=== PATIENT | male | born 1940 | race Caucasian/White ===

== ENCOUNTER 2016-10-14 05:28 | Day surgery (SDC) | payer BC, OTHER ==
[2016-10-10 15:03] VITALS: BMI 28.1
[2016-10-14] MEDS ORDERED: DESFLURANE GAS 240 ML BOTTLE IH ONE (09:25)
[2016-10-14] MEDS ORDERED: PROPOFOL 20 ML ONE ×2 (09:28)
[2016-10-14] MEDS ORDERED: SUCCINYLCHOLINE CHLORIDE 200 MG/10 ML VIAL ONE (09:43)
[2016-10-14] MEDS ORDERED: LEVOFLOXACIN 500 MG PREMIX BAG IVPB ONE (09:51)
[2016-10-14] MEDS ORDERED: MIDAZOLAM HCL 2 MG/2 ML SINGLE DOSE VIAL ONE (09:54)
[2016-10-14] MEDS ORDERED: KETOROLAC TROMETHAMINE 30 MG/1 ML VIAL ONE (09:56)
--- NOTE | 2016-10-14 10:33 | OP ---
Operative Note - Note: Operative Date: 10/14/16 Pre-Operative Diagnosis: recurrent bladder tumor Operation: transurethral resection and vaporization of bladder tumor Findings: sessile bladder tumor involve posterior wall and dome of bladder (area of [id number]) Post-Operative Diagnosis: Same as Pre-op Surgeon: Madhu Villaseñor Anesthesia: General Specimens Removed: bladder tumor Estimated Blood Loss (mls): 10 Drains & Tubes with Location: [address] [facility] [place] Operative Report Dictated: Yes
[2016-10-14] MEDS ORDERED: oxyCODONE HCL 5 MG TABLET PO PRN (10:42)
[2016-10-14] MEDS ORDERED: PROMETHAZINE HCL 25 MG/1 ML VIAL IVPUSH PRN (10:42)
[2016-10-14] MEDS ORDERED: ONDANSETRON 4 MG/2 ML VIAL IVPUSH PRN (10:42)
--- NOTE | 2016-10-14 11:40 | OP ---
DATE OF OPERATION: 10/14/2016 PREOPERATIVE DIAGNOSIS: Recurrent bladder tumor. POSTOPERATIVE DIAGNOSIS: Recurrent bladder tumor. PROCEDURE: Transurethral resection and transurethral vaporization of bladder tumor. ATTENDING: Feli Michelle MD ANESTHESIA: General. DESCRIPTION OF PROCEDURE: The patient was brought into the operating room and placed in a supine position on the operating room table. General anesthesia and preoperative antibiotics were administered for surgical prophylaxis. The patient was then placed in a dorsal lithotomy position. The patient has a history of transitional cell carcinoma of the bladder. On interval cystoscopy, the patient was noted to have a sessile tumor involving the posterior wall and dome of the bladder with an area involving greater than 10 cm x 10 cm. The patient is aware of the risks of perforation. The patient understands these risks and accepts these risks. A resectoscope was placed, and resection of tumor involving the posterior wall of the bladder is performed. The area of tumor is greater than 10 cm x 10 cm. A retail sales representative resection is performed in order to assess whether or not muscle infiltration of the presumed cancer has occurred. The patient had all bladder fragments evacuated with the [employer] evacuator. Excellent hemostasis was obtained at this time. Once this was accomplished, vaporization of residual tumor and the complete posterior wall and posterior dome of the bladder was performed. Vaporization was done to the level of the muscle tissue. Excellent hemostasis was obtained. No evidence of perforation was noted. The patient tolerated the procedure very well. He was left with a 26-Israeli catheter straight drainage with clear drainage. The disposition of the patient was to the recovery room. FELI MICHELLE M.D. [id number]
[2016-10-14 12:08] VITALS: TEMP 97.9
[2016-10-14 13:11] VITALS: BP 115/58; PULSE 66
--- NOTE | 2016-10-15 11:32 | PATH ---
Surgical Pathology Report Patient Name: MIKEY NICOLAS [facility]. Rec. #: [id number] /Age/Gender: 1940 (Age: 76) / M Account: [id number] Location: [facility] Taken: 10/14/2016 Received: 10/14/2016 Reported: 10/15/2016 Physicians: Madhu Villaseñor Specimen(s) Received BLADDER TUMOR Clinical History Recurrent bladder tumor Final Diagnosis BLADDER, TUR: FLAT UROTHELIAL CARCINOMA IN SITU. NO INVASION IDENTIFIED. MUSCULARIS PROPRIA (DETRUSOR MUSCLE) IS PRESENT AND IS FREE OF CARCINOMA. Comment: This case was discussed with Dr. Villaseñor on October 15, 2016. Electronically Signed Baldemar Black M.D. Gross Description Received in formalin labeled "bladder tumor," is a 1.5 x 1.1 x 0.3 cm aggregate of jackson-pink soft tissue fragments. The formalin is filtered and the specimen is entirely submitted in one cassette. /10/14/2016 saudi10/14/2016
== END 2016-10-14 13:11 | disposition home or self-care (01) ==
LOC: JASU-SURG 05:28
PROVIDERS: ATTEND Urology
PROC: 0T5B8ZZ Destruction of Bladder, Via Natural or Artificial Opening Endoscopic (ICD-10-PCS; principal; 2016-10-14 09:00)
DX: D09.0 Carcinoma in situ of bladder (principal)
CPT/HCPCS: 88307-TC; 94760

== ENCOUNTER 2017-01-16 17:37 | Inpatient (IN) | payer BC, OTHER ==
[2017-01-16 17:49] VITALS: BMI 27.0
[2017-01-16] MEDS ORDERED: SODIUM CHLORIDE 500 ML IV STA ×2 (18:16→18:26)
--- NOTE | 2017-01-16 18:24 | PDOC ---
History of Present Illness - General Chief Complaint: Weakness Stated Complaint: WEAKNESS Time Seen by Provider: 01/16/17 18:01 History Source: Patient, Family - History of Present Illness Timing/Duration: other (4 days) Associated Symptoms: reports: weakness. denies: chest pain, cough, fever/chills , headaches, nausea/vomiting, shortness of breath, syncope Past History - Past Medical History Allergies/Adverse Reactions: Allergies Allergy/AdvReac Type Severity Reaction Status Date / Time No Known Drug Allergies Allergy Verified 01/16/17 17:49 Home Medications: Ambulatory Orders Aspirin [ASA -] 81 mg PO DAILY 01/20/12 Tamsulosin HCl [Flomax -] 0.4 mg PO HS 01/20/12 Valsartan [Diovan] 40 mg PO DAILY #0 tablet 01/23/12 Amlodipine Besylate [Norvasc -] 2.5 mg PO DAILY 10/14/16 Bupropion HCl [Bupropion Xl] 300 mg PO DAILY 10/14/16 Metformin HCl 500 mg PO BID 10/14/16 Simvastatin 20 mg PO HS 10/14/16 Anemia: Yes Asthma: No Cancer: Yes (BLADDER) Cardiac Disorders: Yes (PACEMAKER) CVA: No COPD: No CHF: No Dementia: No Diabetes: Yes GI Disorders: No Disorders: No HTN: Yes Hypercholesterolemia: Yes Liver Disease: No Seizures: No Thyroid Disease: No - Surgical History Abdominal Surgery: Yes (BLADDER) Appendectomy: No Cardiac Surgery: Yes (PACEMAKER) Cholecystectomy: No Lung Surgery: No Neurologic Surgery: No Orthopedic Surgery: Yes - Psycho/Social/Smoking Cessation Hx Suicidal Ideation: No Smoking Status: No Smoking History: Never smoked Have you smoked in the past 12 months: No Number of Cigarettes Smoked Daily: 0 Information on smoking cessation initiated: No Hx Alcohol Use: No Drug/Substance Use Hx: No Substance Use Type: None Hx Substance Use Treatment: No Review of Systems - Review of Systems Constitutional: Yes: Malaise, Weakness. No: Fever Respiratory: No: Cough, Shortness of Breath Cardiac (ROS): Yes: Lightheadedness. No: Chest Pain, Palpitations, Syncope ABD/GI: No: Constipated, Diarrhea, Nausea, Vomiting : No: Burning, Flank Pain, Hematuria Neurological: Yes: Dizziness. No: Headache *Physical Exam - Vital Signs Last Vital Signs Temp Pulse Resp BP Pulse Ox 97.5 F L 71 18 85/56 99 01/16/17 17:46 01/16/17 17:46 01/16/17 17:46 01/16/17 17:46 01/16/17 17:46 - Physical Exam General Appearance: Yes: Appropriately Dressed. No: Apparent Distress HEENT: positive: Normal Voice Neck: positive: Supple Respiratory/Chest: positive: Lungs Clear, Normal Breath Sounds. negative: Respiratory Distress Cardiovascular: positive: Regular Rate, S1, S2 Gastrointestinal/Abdominal: positive: Soft. negative: Tender Rectal Exam: positive: normal exam Musculoskeletal: negative: CVA Tenderness Extremity: positive: Normal Inspection. negative: Pedal Edema Integumentary: positive: Dry, Warm Neurologic: positive: Fully Oriented, Alert, Normal Mood/Affect, Motor Strength 5/5, Finger to Nose, Other (no nystagmus, no drift, no ataxia). negative: Facial Droop, Confused ED Treatment Course - LABORATORY CBC & Chemistry Diagram: 01/16/17 18:20 01/16/17 18:20 - RADIOLOGY Radiology Studies Ordered: Category Date Time Status CHEST X-RAY PORTABLE* [RAD] Stat Radiology 01/16/17 18:15 Ordered Medical Decision Making - Medical Decision Making 01/16/17 18:17 76-year-old male history of BPH, hypertension, hyperlipidemia, on baby aspirin, NIDDM, pacemaker for SSS, CHF, vertigo on meclizine, bladder ca on INH, here with dizziness and weakness. Patient reports developing intermittent vertigo for the past 4 days, worse when standing up from a sitting position, resolves at rest, similar to prior episodes. Also c/o profound weakness w/ decreased appetite. Denies headache, blurred vision, slurred speech, focal weakness, chest pain, shortness of breath, edema or palpitations. No recent URIs. No abd pain, change in BM, dysuria, n/v/f/c. Seen in his PMDs office today and sent to ED for admission See exam Weakness Hypotensive to 80s/50s here, rest of VSS -IVF -labs -d/w referring PMD -admit Vertigo H/o same, on meclizine Non-focal in ED -labs 01/16/17 18:51 Case d/w Dr Garza, states he saw pt today and that pt is not at his baseline. concerned about possible myocarditis as cause of symptoms as patient is susceptible to viruses as per M.D. States Dr. Rock of cards aware of patient and will evaluate and possibly do an echo. Wants patient admitted to telemetry 01/16/17 18:53 01/16/17 18:54 Case d/w Dr Gardner and pt admitted. Signed out to RENE Ellis pending w/u in ED 01/16/17 18:55 *DC/Admit/Observation/Transfer Diagnosis at time of Disposition: Weakness, Vertigo - Discharge Dispostion Condition at time of disposition: Fair Admit: Yes - Referrals Referrals: Gage Garza MD [Primary Care Provider] -
[2017-01-16 18:35] LABS: BASOPHIL 0.3 % (0-2.0); EOSINOPHIL 0.1 % (0-4.5); MCH 28.6 pg (25.7-33.7); MCHC 32.9 g/dl (32.0-35.9); MEAN PLT VOLUME 9.2 fl (7.5-11.1); NEUTROPHILS 76.1 % (42.8-82.8); PLATELET COUNT 175 K/MM3 (134-434); RDW 13.8 % (11.9-15.9); WHITE BLOOD COUNT 8.8 K/mm3 (4.0-10.0)
--- NOTE | 2017-01-16 18:48 | PDOC ---
*Physical Exam - Vital Signs Last Vital Signs Temp Pulse Resp BP Pulse Ox 97.5 F L 70 20 106/57 97 01/16/17 17:46 01/16/17 18:10 01/16/17 18:10 01/16/17 18:24 01/16/17 18:10 - Physical Exam Comments: 01/16/17 18:47 The patient was examined by [RENE Whipple] under my direct supervision. I personally evaluated the patient. I concur with the above findings and the plan of care. ED Treatment Course - LABORATORY CBC & Chemistry Diagram: 01/16/17 18:20 01/16/17 18:20 - ADDITIONAL ORDERS Additional order review: 01/16/17 18:20 RBC 5.06 MCV 87.0 MCHC 32.9 RDW 13.8 MPV 9.2 Neutrophils % 76.1 Lymphocytes % 15.0 D Monocytes % 8.5 Eosinophils % 0.1 D Basophils % 0.3 - Medications Given in the ED: ED Medications Discontinued Medications Generic Name Dose Route Start Last Admin Trade Name Taylor PRN Reason Stop Dose Admin Sodium Chloride 500 mls @ 0 mls/hr 01/16/17 18:16 01/16/17 18:24 Normal Saline - IV 01/16/17 18:17 500 mls/hr ASDIR STA Administration Wide Open Sodium Chloride 500 mls @ 0 mls/hr 01/16/17 18:26 01/16/17 18:47 Normal Saline - IV 01/16/17 18:27 500 mls/hr ASDIR STA Administration Wide Open *DC/Admit/Observation/Transfer Diagnosis at time of Disposition: Weakness, Vertigo - Discharge Dispostion Condition at time of disposition: Fair
[2017-01-16 19:09] LABS: INR 1.08 (0.82-1.09); PROTHROMBIN TIME (PATIENT) 11.9 SEC (9.98-11.88)
[2017-01-16 19:49] LABS: ALBUMIN 3.7 g/dl (3.4-5.0); ANION GAP 13 (8-16); BILIRUBIN,TOTAL 1.1 mg/dL (0.2-1.0); CALCIUM 8.5 mg/dL (8.5-10.1); CO2 25 mmol/L (21-32); CREATININE 1.7 mg/dL (0.7-1.3); GLUCOSE,RANDOM 116 mg/dL (74-106); SGOT/AST 14 U/L (15-37); SGPT/ALT 21 U/L (12-78); TOT PROT 7.4 g/dl (6.4-8.2)
[2017-01-16 19:51] LABS: ALK PHOS 56 U/L (45-117); TROPONIN I < 0.02 ng/ml (0.00-0.05)
[2017-01-16] MEDS ORDERED: MECLIZINE HCL 25 MG TABLET (FP) PO PRN (23:09)
[2017-01-17 02:03] LABS: URINE APPEARANCE CLEAR; URINE BILIRUBIN NEGATIVE (NEGATIVE); URINE BLOOD NEGATIVE (NEGATIVE); URINE COLOR YELLOW; URINE GLUCOSE (UA) NEGATIVE (NEGATIVE); URINE KETONE TRACE (NEGATIVE); URINE LEUK ESTERASE NEGATIVE (NEGATIVE); URINE NITRITE NEGATIVE (NEGATIVE); URINE PROTEIN NEGATIVE (NEGATIVE); URINE UROBILINOGEN NEGATIVE E.U./dl (0.2-1.0)
[2017-01-17 02:47] LABS: TROPONIN I < 0.02 ng/ml (0.00-0.05)
[2017-01-17 06:44] LABS: BASOPHIL 0.3 % (0-2.0); EOSINOPHIL 0.3 % (0-4.5); MCH 29.4 pg (25.7-33.7); MCHC 34.5 g/dl (32.0-35.9); MEAN CELL VOLUME 85.4 fl (80-96); NEUTROPHILS 65.1 % (42.8-82.8); PLATELET COUNT 119 K/MM3 (134-434); RDW 13.6 % (11.9-15.9); WHITE BLOOD COUNT 4.6 K/mm3 (4.0-10.0)
[2017-01-17] MEDS: INSULIN SLIDING SCALE (NOVOLOG) 1 VIAL SQ SCH ×4 (06:44→21:20)
[2017-01-17 07:41] LABS: ANION GAP 11 (8-16); CALCIUM 7.7 mg/dL (8.5-10.1); CO2 26 mmol/L (21-32); CREATININE 1.1 mg/dL (0.7-1.3); GLUCOSE,RANDOM 99 mg/dL (74-106); SGOT/AST 14 U/L (15-37); SGPT/ALT 19 U/L (12-78)
[2017-01-17 07:52] LABS: ALK PHOS 46 U/L (45-117); BILIRUBIN,TOTAL 0.9 mg/dL (0.2-1.0); THYROID STIMULATING HORMONE 3.33 uIU/ml (0.358-3.74); TOT PROT 6.1 g/dl (6.4-8.2)
[2017-01-17] MEDS: ASPIRIN 81 MG CHEWABLE TABLETS PO SCH (09:18)
[2017-01-17] MEDS ORDERED: PATIENT'S OWN MEDICATION (NON-FORMULARY) (Bupropion Hcl [Bupropion Xl] 300 MG) PO SCH (10:00)
--- NOTE | 2017-01-17 12:06 | HP ---
Admitting History and Physical - Smoking History Smoking history: Never smoked Have you smoked in the past 12 months: No Aproximately how many cigarettes per day: 0 - Alcohol/Substance Use Hx Alcohol Use: No Home Medications - Allergies Allergies/Adverse Reactions: Allergies Allergy/AdvReac Type Severity Reaction Status Date / Time No Known Drug Allergies Allergy Verified 01/16/17 17:49 - Home Medications Home Medications: Ambulatory Orders Aspirin [ASA -] 81 mg PO DAILY 01/20/12 Tamsulosin HCl [Flomax -] 0.4 mg PO HS 01/20/12 Valsartan [Diovan] 40 mg PO DAILY #0 tablet 01/23/12 Amlodipine Besylate [Norvasc -] 2.5 mg PO DAILY 10/14/16 Bupropion HCl [Bupropion Xl] 300 mg PO DAILY 10/14/16 Metformin HCl 500 mg PO BID 10/14/16 Simvastatin 20 mg PO HS 10/14/16 Physical Examination Vital Signs: Vital Signs Temperature 98.5 F 01/17/17 10:00 Pulse Rate 83 01/17/17 10:00 Respiratory Rate 20 01/17/17 10:00 Blood Pressure 108/72 01/17/17 10:00 O2 Sat by Pulse Oximetry (%) 98 01/17/17 09:00 Labs: CBC, BMP 01/17/17 05:58 01/17/17 05:58
--- NOTE | 2017-01-17 15:51 | CON.CARD ---
Cardiology Consult (text) - Consultation Consultation Note: CC: presyncope 76-year-old male history of hypertension, hyperlipidemia , pacemaker for SSS, NIDDM, BPH,, vertigo on meclizine, recurrent bladder ca? (patient denies), here with acute on chronic dizziness and weakness. Long-standing symtoms of LH/weakness. Recently has been getting valsartan dose downtitrated due to these symptoms and low pressures. Associated poor po intake from decreased appetite. This week only drinking one glass of water/day (denies any specific reason for decreased PO intake). Endorses significant associated weight loss. 15 lbs in the past 3 months since he saw dr. navarrete (was 190 lbs at that time). Attributes weight loss to metformin. Denies chest pain, shortness of breath, orthopnea, pnd, edema, bleeding or palpitations Denies headache, blurred vision, slurred speech, abd pain, change in BM, n/v/ f/c. No recent signs or symptoms of infection. Seen in his PMDs office today and sent to ED for admission pmhx/pshx: per hpi, removal of recurrent bladder tumor in september fam hx: mother in 50s ? congestive heart failure social hx: non-smoker, no etoh or illicits ros: per hpi Ambulatory Orders Aspirin [ASA -] 81 mg PO DAILY 01/20/12 Tamsulosin HCl [Flomax -] 0.4 mg PO HS 01/20/12 Valsartan [Diovan] 40 mg PO DAILY #0 tablet 01/23/12 Amlodipine Besylate [Norvasc -] 2.5 mg PO DAILY 10/14/16 Bupropion HCl [Bupropion Xl] 300 mg PO DAILY 10/14/16 Metformin HCl 500 mg PO BID 10/14/16 Simvastatin 20 mg PO HS 10/14/16 Current Medications Aspirin (Asa -) 81 mg PO DAILY [facility] Last Admin: 01/17/17 09:18 Dose: 81 mg Atorvastatin Calcium (Lipitor -) 10 mg PO HS [facility] Bupropion HCl (Wellbutrin Xl -) 300 mg PO DAILY [facility] Last Admin: 01/17/17 09:18 Dose: 300 mg Insulin Aspart (Novolog Vial Sliding Scale -) 1 vial SQ ACHS [facility] PRN Reason: Protocol Last Admin: 01/17/17 12:17 Dose: Not Given Meclizine HCl (Antivert -) 25 mg PO Q6H PRN PRN Reason: vertigo Tamsulosin HCl (Flomax -) 0.4 mg PO HS [facility] Vital Signs - 24 hr 01/16/17 01/16/17 01/16/17 17:46 18:10 18:24 Temperature 97.5 F L Pulse Rate 71 Pulse Rate [ 70 Radial] Respiratory 18 20 Rate Blood Pressure 85/56 106/57 Blood Pressure 106/57 [Right Arm] O2 Sat by Pulse 99 97 Oximetry (%) Vital Signs - 24 hr 01/17/17 01/17/17 14:05 17:09 Temperature 97.9 F Pulse Rate 70 Pulse Rate [ 78 Left side Sitting] Pulse Rate [ 86 Left side Standing] Pulse Rate [ 61 Left side Supine] Pulse Rate [ Radial] Respiratory 16 Rate Blood Pressure 94/53 Blood Pressure 137/57 [Left side Sitting] Blood Pressure 90/56 [Left side Standing] Blood Pressure 113/59 [Left side Supine] Blood Pressure [Right Arm] O2 Sat by Pulse Oximetry (%) Intake & Output 01/15/17 01/16/17 01/17/17 01/18/17 07:59 07:59 07:59 07:59 Intake Total 0 670 Balance 0 670 Weight 175 lb 12.8 oz nad, calm jvd flat, neck supple rrr nl s1, s2 no mrg + bs soft nt nd ext without e/c/c + dp/pt aaoxe no carotid bruits no jaundice, diaphoresis. CBC, BMP 01/17/17 05:58 01/17/17 05:58 Selected Entries 01/16/17 17:46 Blood Pressure 85/56 Laboratory Tests 01/16/17 01/16/17 01/16/17 18:17 18:20 18:20 INR 1.08 Hemoglobin A1c % Total Bilirubin AST ALT Alkaline Phosphatase Troponin I < 0.02 B-Natriuretic Peptide 754.61 H Albumin 3.7 TSH 01/17/17 01/17/17 01/17/17 01:30 05:58 05:58 INR Hemoglobin A1c % 6.1 H D Total Bilirubin 0.9 AST 14 L ALT 19 Alkaline Phosphatase 46 Troponin I < 0.02 B-Natriuretic Peptide Albumin TSH 3.33 Echo here 01/17/17: nl lv/rv, E, A reversal. RVSP 43 Echo 01/02: TDS; nl LV/EF; dd1; nl RV; mild LAE; valves WNL; nl LAP; mild dil ao root Carotids 05/05: mild, nonob plq. MIBI 01/29 ([facility]): persantine, Vpaced, no isch/scar, nl EF presyncope - recently has been getting valsartan dose downtitrated due to similar symptoms and low pressures. Last outpatient cards bp 102/62 76-year-old male history of hypertension, hyperlipidemia , pacemaker for SSS, NIDDM, BPH,, vertigo on meclizine, recurrent bladder ca? (patient denies), here with acute on chronic dizziness and weakness. Presyncope - in setting of recent weight loss, decreased intake of liquids with + orthostatics. Likely etiology. IVF as needed. - hypotensive on presentation. Will stop outpatient valsartan ? decreased anti- hypertensive requirement in setting of weight loss? - decrease or hold flomax dose at discretion of pmd/urology. - cE's neg x 2. EKG without ischemic changes. Echo wnl. Has ppm. OK to d/c telemetry - TSH wnl. Further work up per pmd [employer] PPM - not ppm dependent - rare episodes of nsvt and psvt on prior interrogations - routine monitoring, has upcoming device check in January. - routine prn electrolyte repletion HTN - as above HL - on statin as outpatient, will resume.
--- NOTE | 2017-01-17 17:13 | EKG ---
Test Reason : Blood Pressure : / mmHG Vent. Rate : 065 BPM Atrial Rate : 065 BPM P-R Int : 184 ms QRS Dur : 130 ms QT Int : 420 ms P-R-T Axes : 002 -55 024 degrees QTc Int : 436 ms POOR DATA QUALITY, INTERPRETATION MAY BE ADVERSELY AFFECTED Atrial-paced rhythm RIGHT BUNDLE BRANCH BLOCK LEFT ANTERIOR FASCICULAR BLOCK BIFASCICULAR BLOCK SEPTAL INFARCT , AGE UNDETERMINED ABNORMAL ECG WHEN COMPARED WITH ECG OF 21-JAN-2012 08:58, ELECTRONIC ATRIAL PACEMAKER HAS REPLACED ELECTRONIC VENTRICULAR PACEMAKER Confirmed by MD HARLEEN, TAHIR ([id number]) on 01/17/2017 5:13:44 PM Referred By: Confirmed By:TAHIR CANSECO MD
[2017-01-17] MEDS ORDERED: INSULIN (NOVOLOG) ASPART 100 UNITS/ML 10ML VIAL ONE (21:10)
[2017-01-17] MEDS: TAMSULOSIN HCL 0.4 MG CAP.ER.24H (FP) PO SCH (21:19)
[2017-01-17] MEDS: ATORVASTATIN CA 10 MG TABLET (FP) PO SCH (21:19)
[2017-01-17] MEDS ORDERED: PATIENT'S OWN MEDICATION (NON-FORMULARY) (Simvastatin [Simvastatin] 20 MG) PO SCH (22:00)
[2017-01-18] MEDS ORDERED: INSULIN (NOVOLOG) ASPART 100 UNITS/ML 10ML VIAL ONE (05:39)
[2017-01-18] MEDS: INSULIN SLIDING SCALE (NOVOLOG) 1 VIAL SQ SCH ×4 (06:09→21:11)
[2017-01-18 07:53] LABS: BASOPHIL 0.4 % (0-2.0); EOSINOPHIL 1.8 % (0-4.5); MCH 29.4 pg (25.7-33.7); MCHC 34.4 g/dl (32.0-35.9); MEAN CELL VOLUME 85.3 fl (80-96); MEAN PLT VOLUME 9.1 fl (7.5-11.1); NEUTROPHILS 61.5 % (42.8-82.8); PLATELET COUNT 140 K/MM3 (134-434); RDW 13.5 % (11.9-15.9); WHITE BLOOD COUNT 5.1 K/mm3 (4.0-10.0)
[2017-01-18 08:18] LABS: ALBUMIN 2.8 g/dl (3.4-5.0); ANION GAP 10 (8-16); BILIRUBIN,TOTAL 0.5 mg/dL (0.2-1.0); CALCIUM 7.9 mg/dL (8.5-10.1); CO2 25 mmol/L (21-32); CREATININE 0.9 mg/dL (0.7-1.3); GLUCOSE,RANDOM 95 mg/dL (74-106); MAGNESIUM 2.2 mg/dL (1.8-2.4); SGOT/AST 12 U/L (15-37); SGPT/ALT 17 U/L (12-78); TOT PROT 5.7 g/dl (6.4-8.2)
[2017-01-18 08:19] LABS: ALK PHOS 46 U/L (45-117)
--- NOTE | 2017-01-18 08:27 | PN ---
Progress Note, Physician Chief Complaint: presyncope History of Present Illness: still dizzy when stands up for orthostatic VSs, but less so than before "pinching" localized pain comes and goes L axillary line, lasts 1-2 seconds only , no radiation or assctd sob, diaph no ob, swelling - Current Medication List Current Medications: Active Medications Aspirin (Asa -) 81 mg PO DAILY [facility] Last Admin: 01/17/17 09:18 Dose: 81 mg Atorvastatin Calcium (Lipitor -) 10 mg PO HS [facility] Last Admin: 01/17/17 21:19 Dose: 10 mg Bupropion HCl (Wellbutrin Xl -) 300 mg PO DAILY [facility] Last Admin: 01/17/17 09:18 Dose: 300 mg Insulin Aspart (Novolog Vial Sliding Scale -) 1 vial SQ ACHS [facility] PRN Reason: Protocol Last Admin: 01/18/17 06:09 Dose: Not Given Meclizine HCl (Antivert -) 25 mg PO Q6H PRN PRN Reason: vertigo Tamsulosin HCl (Flomax -) 0.4 mg PO HS [facility] Last Admin: 01/17/17 21:19 Dose: 0.4 mg - Objective Vital Signs: Vital Signs Temperature 98.3 F 01/18/17 02:00 Pulse Rate 76 01/18/17 02:00 Respiratory Rate 20 01/18/17 02:00 Blood Pressure 135/73 01/18/17 02:00 O2 Sat by Pulse Oximetry (%) 98 01/17/17 21:00 Constitutional: Yes: Well Nourished, No Distress, Calm Cardiovascular: Yes: Regular Rate and Rhythm, S1, S2. No: Gallop, Murmur Labs: CBC, BMP 01/18/17 06:40 INR, PTT INR 1.08 (0.82-1.09) 01/16/17 18:20 - ....Imaging EKG: Other (tele: NSR, no bradys) Assessment/Plan Echo here 01/17/17: nl lv/rv, mild TR. peak RVSP 43. no peric effusion Echo 01/02: TDS; nl LV/EF; dd1; nl RV; mild LAE; valves WNL; nl LAP; mild dil ao root Carotids 05/05: mild, nonob plq. MIBI 01/29 ([facility]): persantine, Vpaced, no isch/scar, nl EF 76-year-old male history of hypertension, hyperlipidemia , pacemaker for SSS, NIDDM, BPH,, vertigo on meclizine, recurrent bladder ca? (patient denies), here with acute on chronic dizziness and weakness. Presyncope/orthostatic hypotension - chronic sx's of LH with positional head changes (bending down to standing up abruptly), also ? vertigo per d/w pmd - severe sx's at home recently, in setting of recent weight loss, decreased intake of liquids and prerenal AMOL on presentation...SBP 80s in ER. - + orthostatics here (sbp 113 supine-->90 standing)...today 132 supine, 93 standing - valsartan dose recently downtitrated ast outpt due to similar symptoms with bp 102/62 in office at that time - holding valsartan here, resting bp's 100s-130s. - rec d/c flomax +/- change to alternative agent if urinary sx's can tolerate-- defer to hospitalist/followup with dr pedro as outpt - no concern for acute cardiac process (CE's neg x 2. EKG without ischemic changes. Echo wnl. PM fxn WNL recently in office) - TSH wnl. - remains with signif bp drop (40 mmHg) to 90s, and continues to feel dizzy-- would not send home until standing BP is 100 or above and/or no dizzy sx's when standing/ambulating - rec IVF x 24 hrs, recheck orthostatics in am--if still symptomatic or dropping low will add low dose fludrocortisone 0.1mg in am (doubt he will need this if he can hydrate well, but pt admits to very poor po fluids intake during the day) atypical CP: -fleeting sx's with non-cardiac features -ecg unchanged vs priors, trop neg x 2, echo with normal LV fxn -no further w/u required AMOL: - signif prerenal in ER (17/08.7)--normalized [employer] PPM - not ppm dependent - rare episodes of nsvt and psvt on prior interrogations - routine monitoring, has upcoming device check in January. HTN - as above HL - on statin as outpatient, will resume.
[2017-01-18] MEDS: ASPIRIN 81 MG CHEWABLE TABLETS PO SCH (09:12)
[2017-01-18] MEDS ORDERED: SODIUM CHLORIDE 1,000 ML IV SCH ×2 (11:45→12:12)
--- NOTE | 2017-01-18 16:48 | CONSULT ---
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 S/P PPM 20 years ago after syncope in Dr. Garza's office after venipuncture. On amlodipine, valsartan, tamsulosin, metformin, simvastatin and bupropion. S/P cystoscopy in September. 30 Lb weight loss in recent months. 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 CoWorkers have found him "pale" but no diaphoresis. Feels he might faint but has not. On admission has been routinely hypotensive, as low as 82/41. Pacemaker functioning well. CT of head (reviewed): Normal Carotid duplex: Mild intimal thickening without significant stenosis. CECIL: No bruits. Cor reg. S/P PPM NEURO: MS, speech: Normal CN II-XII: normal without nystagmus Motor: No drift or tremor. Normal strength, bulk, tone and reflexes. Toes downgoing Coord: Normal Sensory: Normal Gait: Normal IMP: Normal neurological exam. Orthostatic hypotension SUGGEST: Observe off BP Meds. D/C Meclizine Thank you very much, Nabil Meneses MD
--- NOTE | 2017-01-18 19:47 | PN ---
Progress Note, Physician - Current Medication List Current Medications: Active Medications Aspirin (Asa -) 81 mg PO DAILY [facility] Last Admin: 01/18/17 09:12 Dose: 81 mg Atorvastatin Calcium (Lipitor -) 10 mg PO HS [facility] Last Admin: 01/17/17 21:19 Dose: 10 mg Bupropion HCl (Wellbutrin Xl -) 300 mg PO DAILY [facility] Last Admin: 01/18/17 09:12 Dose: 300 mg Sodium Chloride (Normal Saline -) 1,000 mls @ 125 mls/hr IV [facility] Last Admin: 01/18/17 12:28 Dose: 125 mls/hr Insulin Aspart (Novolog Vial Sliding Scale -) 1 vial SQ ACHS [facility] PRN Reason: Protocol Last Admin: 01/18/17 17:01 Dose: Not Given Tamsulosin HCl (Flomax -) 0.4 mg PO HS [facility] Last Admin: 01/17/17 21:19 Dose: 0.4 mg - Objective Vital Signs: Vital Signs Temperature 98.3 F 01/18/17 02:00 Pulse Rate 70 01/18/17 17:32 Respiratory Rate 20 01/18/17 02:00 Blood Pressure 128/70 01/18/17 17:32 O2 Sat by Pulse Oximetry (%) 98 01/18/17 08:35 Labs: CBC, BMP 01/18/17 06:40 01/18/17 06:40 INR, PTT INR 1.08 (0.82-1.09) 01/16/17 18:20
[2017-01-18] MEDS: ATORVASTATIN CA 10 MG TABLET (FP) PO SCH (21:03)
[2017-01-18] MEDS: TAMSULOSIN HCL 0.4 MG CAP.ER.24H (FP) PO SCH (21:03)
[2017-01-19] MEDS ORDERED: PT OWN MED DRAWER 7, Y5N ONE (09:52)
[2017-01-19] MEDS: ASPIRIN 81 MG CHEWABLE TABLETS PO SCH (10:14)
--- NOTE | 2017-01-19 10:32 | PN ---
Progress Note, Physician Chief Complaint: presyncope History of Present Illness: much better, no dizzy standing up today no cp, sob, palpit - Current Medication List Current Medications: Active Medications Aspirin (Asa -) 81 mg PO DAILY [facility] Last Admin: 01/19/17 10:14 Dose: 81 mg Atorvastatin Calcium (Lipitor -) 10 mg PO HS [facility] Last Admin: 01/18/17 21:03 Dose: 10 mg Bupropion HCl (Wellbutrin Xl -) 300 mg PO DAILY [facility] Last Admin: 01/19/17 10:14 Dose: 300 mg Sodium Chloride (Normal Saline -) 1,000 mls @ 125 mls/hr IV ASDIR [facility] Last Admin: 01/18/17 12:28 Dose: 125 mls/hr Insulin Aspart (Novolog Vial Sliding Scale -) 1 vial SQ ACHS [facility] PRN Reason: Protocol Last Admin: 01/18/17 21:11 Dose: 2 units Tamsulosin HCl (Flomax -) 0.4 mg PO HS [facility] Last Admin: 01/18/17 21:03 Dose: 0.4 mg - Objective Vital Signs: Vital Signs Temperature 98.8 F 01/19/17 06:00 Pulse Rate 69 01/19/17 06:00 Respiratory Rate 20 01/19/17 06:00 Blood Pressure 134/71 01/19/17 06:00 O2 Sat by Pulse Oximetry (%) 98 01/18/17 19:51 Constitutional: Yes: Well Nourished, No Distress Cardiovascular: Yes: Regular Rate and Rhythm, S1, S2. No: Gallop, Murmur Respiratory: Yes: Regular, CTA Bilaterally. No: Accessory Muscle Use, Rales, Wheezes Extremities: No: Cold Edema: No Neurological: Yes: Alert, Oriented Psychiatric: No: Agitated Labs: CBC, BMP 01/18/17 06:40 01/18/17 06:40 INR, PTT INR 1.08 (0.82-1.09) 01/16/17 18:20 - ....Imaging EKG: Other (tele: As/Vs and Ap/Vs) Assessment/Plan Echo here 01/17/17: nl lv/rv, mild TR. peak RVSP 43. no peric effusion Echo 01/02: TDS; nl LV/EF; dd1; nl RV; mild LAE; valves WNL; nl LAP; mild dil ao root Carotids 05/05: mild, nonob plq. MIBI 01/29 ([facility]): persantine, Vpaced, no isch/scar, nl EF 76-year-old male history of hypertension, hyperlipidemia , pacemaker for SSS, NIDDM, BPH,, vertigo on meclizine, recurrent bladder ca? (patient denies), here with acute on chronic dizziness and weakness. Presyncope/orthostatic hypotension - chronic sx's of with positional head changes (bending down to standing up abruptly), also ? vertigo per d/w pmd - severe sx's at home recently, in setting of recent weight loss, decreased intake of liquids and prerenal AMOL on presentation...SBP 80s in ER. - + orthostatics here (sbp 113 supine-->90 standing)...today 132 supine, 93 standing - valsartan dose recently downtitrated ast outpt due to similar symptoms with bp 102/62 in office at that time - holding valsartan here, resting bp's 100s-130s. - no concern for acute cardiac process (CE's neg x 2. EKG without ischemic changes. Echo wnl. PM fxn WNL recently in office) - TSH wnl. - 01/18 remains with signif bp drop (40 mmHg) to 90s, and continues to feel dizzy- -would not send home until standing BP is 100 or above and/or no dizzy sx's when standing/ambulating - s/p IVF x 24 hrs, no longer orthostatic today, no more dizzy - OK FOR D/C FROM [facility] P.O[facility].--WOULD HOLD BP MEDS, PT TO SEE DR PRIETO THIS WEEK FOR BP F/U - am cortisol sent, will f/u as outpt (doubt adrenal insuff here) - d/w'd mayela yest--cannot d/c flomax given severe urinary freq/nocturia sx's atypical CP: -fleeting sx's with non-cardiac features -ecg unchanged vs priors, trop neg x 2, echo with normal LV fxn -no further w/u required AMOL: - signif prerenal in ER (17/08.7)--normalized [employer] PPM - not ppm dependent - rare episodes of nsvt and psvt on prior interrogations - routine monitoring, has upcoming device check in January. HTN - as above HL - on statin as outpatient, will resume.
[2017-01-19] MEDS: INSULIN SLIDING SCALE (NOVOLOG) 1 VIAL SQ SCH (11:46)
[2017-01-19 14:06] VITALS: BP 134/57; PULSE 66; TEMP 97.9
== END 2017-01-19 15:15 | disposition home or self-care (01) | DRG 312 ==
LOC: JER 17:37 → JERBED 18:50 → J4S 22:18
PROVIDERS: ADMIT Internal Medicine; ATTEND Internal Medicine
DX: I95.1 Orthostatic hypotension (principal); N17.9 Acute kidney failure, unspecified; R55 Syncope and collapse; R07.89 Other chest pain; I10 Essential (primary) hypertension; E78.5 Hyperlipidemia, unspecified; E11.9 Type 2 diabetes mellitus without complications; R53.1 Weakness
CPT/HCPCS: 36415; 70450-TC; 71010-TC; 80053; 81003; 82533; 82550; 83036; 83735; 83880; 84443; 84484; 85025; 85610; 93005; 93010; 93306-TC; 93880-TC; 99285-25

== ENCOUNTER 2024-01-19 11:35 | Observation (INO) | payer BC, OTHER ==
[2024-01-19] MEDS ORDERED: LIDOCAINE 4% PATCH TP ONE ×2 (12:35→12:39)
[2024-01-19] MEDS ORDERED: ACETAMINOPHEN 500 MG TABLET (FP) ONE (12:35)
[2024-01-19] MEDS ORDERED: METHOCARBAMOL 500 MG TABLET ONE (12:35)
[2024-01-19] MEDS: LIDOCAINE 4% PATCH TP ONE ×2 (12:43→13:00)
[2024-01-19] MEDS: ACETAMINOPHEN 500 MG TABLET (FP) PO ONE (12:44)
[2024-01-19] MEDS: METHOCARBAMOL 500 MG TABLET PO ONE (12:44)
[2024-01-19] MEDS ORDERED: DEXAMETHASONE SOD PHOSPHATE 10 MG/1 ML VIAL ONE (13:36)
[2024-01-19] MEDS: DEXAMETHASONE SOD PHOSPHATE 10 MG/1 ML VIAL IM ONE (13:39)
[2024-01-19] MEDS ORDERED: oxyCODONE HCL 5 MG TABLET ONE (15:12)
[2024-01-19] MEDS: oxyCODONE HCL 5 MG TABLET PO ONE (15:14)
[2024-01-19 16:34] LABS: BASO % 0.4 % (0-2.0); EOS % 0.7 % (0-4.5); HEMATOCRIT 39.7 % (35.4-49); HEMOGLOBIN 13.4 GM/dL (11.7-16.9); LYMPH % 15.2 % (8-40); MCH 27.7 pg (25.7-33.7); MCHC 33.7 g/dl (32.0-35.9); MEAN CELL VOLUME 82.1 fl (80-96); MEAN PLT VOLUME 8.6 fl (7.5-11.1); MONO % 1.2 % (3.8-10.2); NEUT % 82.5 % (42.8-82.8); PLATELET COUNT 165 10^3/uL (134-434); RBC 4.84 M/mm3 (4.00-5.60); RDW 16.5 % (11.9-15.9); URINE APPEARANCE CLEAR; URINE BILIRUBIN NEGATIVE (NEGATIVE); URINE COLOR YELLOW; URINE GLUCOSE (UA) NEGATIVE (NEGATIVE); URINE KETONE NEGATIVE (NEGATIVE); URINE LEUK ESTERASE NEGATIVE (NEGATIVE); URINE NITRITE NEGATIVE (NEGATIVE); URINE PROTEIN NEGATIVE (NEGATIVE); URINE UROBILINOGEN 0.2 mg/dL (0.2-1.0); WHITE BLOOD COUNT 6.9 K/mm3 (4.0-10.0)
[2024-01-19 17:10] LABS: CALCIUM 9.3 mg/dL (8.5-10.1)
[2024-01-19 17:11] LABS: ALBUMIN 4.6 g/dl (3.4-5.0); BLOOD UREA NITROGEN 14.1 mg/dL (7-18)
[2024-01-19 17:14] LABS: CREATININE 0.9 mg/dL (0.55-1.3)
[2024-01-19 17:15] LABS: BILIRUBIN,TOTAL 0.8 mg/dL (0.2-1)
[2024-01-19 17:16] LABS: TOT PROT 7.5 g/dl (6.4-8.2)
[2024-01-19] MEDS ORDERED: KETOROLAC TROMETHAMINE 15 MG/ML VIAL ONE (20:30)
[2024-01-19] MEDS: KETOROLAC TROMETHAMINE 15 MG/ML VIAL IM ONE ×2 (20:37→21:13)
[2024-01-19] MEDS: ATORVASTATIN CA 20 MG TABLET (FP) PO SCH (23:44)
[2024-01-19] MEDS: TAMSULOSIN HCL 0.4 MG CAP PO SCH (23:44)
[2024-01-19] MEDS: INSULIN ASPART SLIDING SCALE (NOVOLOG) 1 VIAL SQ SCH (23:44)
[2024-01-19] MEDS: LIDOCAINE PATCH REMOVAL MC ONE ×2 (23:55)
[2024-01-20 03:26] VITALS: BMI 25.9
[2024-01-20] MEDS: LABETALOL HCL 5 MG/1 ML (100MG/20 ML VIAL) IVPB ONE (04:04)
[2024-01-20 07:01] LABS: POTASSIUM 4.1 mmol/L (3.5-5.1)
[2024-01-20 07:04] LABS: CALCIUM 8.6 mg/dL (8.5-10.1)
[2024-01-20 07:05] LABS: BLOOD UREA NITROGEN 14.1 mg/dL (7-18)
[2024-01-20 07:08] LABS: CREATININE 0.7 mg/dL (0.55-1.3)
[2024-01-20 07:10] LABS: BILIRUBIN,TOTAL 0.7 mg/dL (0.2-1); TOT PROT 6.6 g/dl (6.4-8.2)
[2024-01-20 07:24] LABS: ALBUMIN 3.6 g/dl (3.4-5.0)
[2024-01-20] MEDS ORDERED: METHOCARBAMOL 500 MG TABLET PO PRN (07:56)
[2024-01-20] MEDS: DONEPEZIL HCL 10 MG TABLET (FP) PO SCH (09:03)
[2024-01-20] MEDS: ACETAMINOPHEN 500 MG TABLET (FP) PO SCH (09:04)
[2024-01-20] MEDS: ENOXAPARIN NA (PORCINE) 40 MG/0.4 ML DISP.SYRIN SQ SCH (09:05)
[2024-01-20] MEDS: amLODIPine BESYLATE 5 MG TABLET (FP) PO SCH (09:05)
[2024-01-20] MEDS: KETOROLAC TROMETHAMINE 10 MG TABLET PO SCH (09:05)
[2024-01-20] MEDS: POLYETHYLENE GLYCOL (HEALTHYLAX) 3350 17 GM PACKET PO SCH (09:06)
[2024-01-20] MEDS: LIDOCAINE 5% TOPICAL PATCH TP SCH (09:08)
[2024-01-20 19:12] VITALS: RESP 18
[2024-01-20] MEDS: LIDOCAINE PATCH REMOVAL MC SCH (21:23)
[2024-01-21 06:02] VITALS: PULSE 63
[2024-01-21 10:03] VITALS: BP 152/73; TEMP 97.6
== END 2024-01-21 10:15 | disposition home health service (06) ==
LOC: JER 11:35 → JERFT 11:35 → JERBED 17:54 → J7W 23:31
PROVIDERS: ADMIT Internal Medicine; ATTEND Internal Medicine
PROC: 3E023GC Introduction of Other Therapeutic Substance into Muscle, Percutaneous Approach (ICD-10-PCS; principal; 2024-01-19)
PROC: 3E033GC Introduction of Other Therapeutic Substance into Peripheral Vein, Percutaneous Approach (ICD-10-PCS; 2024-01-19)
DX: M54.50 Low back pain, unspecified (principal); M51.9 Unspecified thoracic, thoracolumbar and lumbosacral intervertebral disc disorder; E11.9 Type 2 diabetes mellitus without complications; I10 Essential (primary) hypertension; E78.5 Hyperlipidemia, unspecified; Z95.0 Presence of cardiac pacemaker; I49.5 Sick sinus syndrome; G89.29 Other chronic pain; I73.9 Peripheral vascular disease, unspecified
CPT/HCPCS: 36415; 74176-TC; 80053; 81003; 82962; 85025; 87086; 93005; 93010; 96372; 96374; 97116-GP; 97161-GP; 99285-25; G0378; J1100